=== PATIENT | female | born 1980 | race Two or more races ===

== ENCOUNTER 2016-07-08 11:56 | Emergency (ER) | payer MEDICAID ==
[2016-07-08 12:03] VITALS: O2SAT 97
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
[2016-07-08] MEDS ORDERED: FLUORESCEIN SODIUM 1 MG STRIP OP ONE (12:48)
[2016-07-08] MEDS ORDERED: PROPARACAINE 0.5% 15 ML OPHT DROP OP ONE (12:48)
[2016-07-08 13:24] VITALS: BP 135/74; PULSE 52; RESP 12; TEMP 97.7
== END 2016-07-08 13:22 | disposition home or self-care (01) ==
DX: S05.01XA Injury of conjunctiva and corneal abrasion without foreign body, right eye, initial encounter (principal); J45.909 Unspecified asthma, uncomplicated; Z91.040 Latex allergy status; Z91.010 Allergy to peanuts; W22.8XXA Striking against or struck by other objects, initial encounter

== ENCOUNTER 2016-09-03 17:01 | Emergency (ER) | payer MEDICAID ==
[2016-09-03 17:09] VITALS: BP 136/95; PULSE 60; RESP 16; TEMP 97.9; O2SAT 97
[2016-09-03] MEDS ORDERED: TRIAMCINOLONE ACETONIDE 40 MG/ML VIAL IM ONE (17:32)
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
[2016-09-03] MEDS ORDERED: DIAZEPAM 5 MG TAB PO ONE (17:36)
== END 2016-09-03 19:16 | disposition home or self-care (01) ==
PROC: 3E023BZ Introduction of Anesthetic Agent into Muscle, Percutaneous Approach (ICD-10-PCS; principal; 2016-09-03)
DX: S46.811A Strain of other muscles, fascia and tendons at shoulder and upper arm level, right arm, initial encounter (principal); Z91.040 Latex allergy status; X58.XXXA Exposure to other specified factors, initial encounter
CPT/HCPCS: J3301

== ENCOUNTER 2016-09-11 07:52 | Emergency (ER) | payer MEDICAID ==
[2016-09-11 08:03] VITALS: O2SAT 95
--- NOTE | 2016-09-11 08:22 | EDPHY ---
H & P Time Seen by Provider: 09/11/16 08:05 HPI/ROS: CHIEF COMPLAINT: Cough, exposure to pertussis HISTORY OF PRESENT ILLNESS: 36-year-old female generally healthy complaining of 48 hours of nonproductive cough without dyspnea, without flu-like symptoms. No fever or chills. Her mother with whom she is close has been recently diagnosed with pertussis. No chest pain. No back pain. No abdominal pain. No rash. No international travel. PRIMARY CARE PROVIDER: none REVIEW OF SYSTEMS: A ten point review of systems was performed and is negative with the exception of the items mentioned in the HPI PAST MEDICAL & SURGICAL HISTORY: No pertinent medical or surgical history SOCIAL HISTORY: Nonsmoker. Her mother was recently diagnosed with pertussis and she has been in contact with her mother PHYSICAL EXAM (Prior to examination, patient consented to physical exam, hands were washed and my usual and customary physical exam procedures followed) 1) GENERAL: Well-developed, well-nourished, alert and oriented. Appears to be in no acute distress. Speaking full sentences with no signs of respiratory distress 2) HEAD: Normocephalic, atraumatic 3) HEENT: Pupils equal, round, reactive to light bilaterally. Sclera anicteric. Nasopharynx, oropharynx, clear, no lesions. No tonsillar enlargement or exudate Ears bilaterally with normal tympanic membranes. 4) NECK: Full range of motion, no meningeal signs. 5) LUNGS: Clear auscultation bilaterally, no wheezes, no rhonchi, no retractions. 6) HEART: Regular rate and rhythm, no murmur, no heave, no gallop. 7) ABDOMEN: No guarding, no rebound, no focal tenderness, 8) MUSCULOSKELETAL: No peripheral edema or discoloration. 9) BACK: No CVA tenderness 10) SKIN: No rash, no petechiae. 11) Psychiatric: Patient is oriented X 3, there is no agitation. DIFFERENTIAL DIAGNOSIS: in no particular order including but limited to pertussis, influenza, pneumonia, bronchitis, viral URI Smoking Status: Never smoked Constitutional: Initial Vital Signs Temperature (C) 37.3 C 09/11/16 08:00 Heart Rate 81 09/11/16 08:00 Respiratory Rate 16 09/11/16 08:00 Blood Pressure 126/71 H 09/11/16 08:00 O2 Sat (%) 95 09/11/16 08:00 O2 Delivery Mode Room Air Allergies/Adverse Reactions: erythromycin base [Erythromycin Base] Allergy (Severe, Verified 09/11/16 07:59) N/V + RASH gluten [Gluten] Allergy (Severe, Verified 09/11/16 07:59) DELAYED BODY REACTION hydrocodone bitartrate [From Vicodin] Allergy (Severe, Verified 09/11/16 07:59) Anaphylaxis latex [Latex] Allergy (Severe, Verified 09/11/16 07:59) Rash morphine Allergy (Severe, Verified 09/11/16 07:59) Anaphylaxis oxycodone HCl [From Percocet] Allergy (Severe, Verified 09/11/16 07:59) TONGUE SWELLING peanut [Peanut] Allergy (Severe, Verified 09/11/16 07:59) DELAYED BODY REACTION promethazine HCl [From Phenergan] Allergy (Severe, Verified 09/11/16 07:59) DYSTONIA wheat [Wheat] Allergy (Severe, Verified 09/11/16 07:59) DELAYED BODY REACTION acetaminophen [From Percocet] Allergy (Verified 09/11/16 07:59) MUSHROOM Allergy (Severe, Uncoded 11/30/13 17:55) Anaphylaxis Home Medications: Medication Instructions Recorded EPINEPHrine [Epipen] 0.3 mg IM ONCE #2 syr 02/12/15 Albuterol [Proventil Inhaler HFA 1 - 2 puffs IH Q4PRN PRN #1 mdi 08/08/15 (*)] Ondansetron Odt [Zofran Odt] 4 mg PO Q4PRN PRN #20 tab 01/06/16 Ofloxacin 0.3% [Ocuflox 0.3% (RX)] 1 drops RTEYE 5XD #1 btl 07/08/16 Cyclobenzaprine [Flexeril 10 MG 10 mg PO BID PRN #20 tab 09/03/16 (*)] Lidocaine 5% [Lidoderm 5% Patch 3 ea TD DAILY #0 patch 09/03/16 (*)] AZITHROMYCIN [Z-PACK] 500 mg PO DAILY #1 packet 09/11/16 Albuterol [Proventil Inhaler HFA 1 - 2 puffs IH Q4PRN PRN #1 mdi 09/11/16 (*)] Benzonatate [Tessalon Pearles (RX)] 200 mg PO TID PRN #15 cap 09/11/16 MDM/Departure - [facility] ED Course/Re-evaluation: This patient appears well, is maintaining normal saturations, lungs are clear bilaterally. She does have a recent exposure to a family member was diagnosed with pertussis. Patient has no comorbidities such as COPD, diabetes, immunocompromised or immunosuppressed condition. I recommended testing and initiating empiric treatment for pertussis. I do not think that hospitalization is currently indicated. I do not think that chest x-ray is currently indicated given her normal saturations and clear lungs. Usual and customary pulmonary precautions instructions provided and she feels comfortable being discharged .Care and management in consultation with secondary supervising physician Dr Khalil . - Depart Disposition: Home, Routine, Self-Care Clinical Impression: Cough, Exposure to pertussis Condition: Good Instructions: Pertussis (ED), Acute Cough (ED) Additional Instructions: Return to the emergency department immediately for change in breathing habits, change in voice, change in swallowing habits, change in mental status, or any other symptoms that concern you. You have been tested for whooping cough. The Prescriptions: Albuterol [Proventil Inhaler HFA (*)] 1 - 2 puffs IH Q4PRN PRN #1 mdi PRN Reason: Cough, Moderate AZITHROMYCIN [Z-PACK] 500 mg PO DAILY #1 packet Benzonatate [Tessalon Pearles (RX)] 200 mg PO TID PRN #15 cap PRN Reason: Cough, Moderate Referrals: [facility],. [Clinic] - 2-3 days, call for appt.
[2016-09-11 08:44] VITALS: BP 111/83; PULSE 76; RESP 14; TEMP 97.9
[2016-09-14 15:45] LABS: B.PARAPERTUSSIS PCR Negative; B.PERTUSSIS PCR Negative
== END 2016-09-11 08:44 | disposition home or self-care (01) ==
DX: R05 Cough (principal); Z20.818 Contact with and (suspected) exposure to other bacterial communicable diseases; Z91.010 Allergy to peanuts; Z91.040 Latex allergy status
CPT/HCPCS: 87798-90

== ENCOUNTER 2016-09-12 14:43 | Emergency (ER) | payer MEDICAID ==
--- NOTE | 2016-09-12 16:04 | EDPHY ---
H & P Stated Complaint: CP Time Seen by Provider: 09/12/16 15:59 HPI/ROS: CHIEF COMPLAINT: Chest pain, fevers, body aches HISTORY OF PRESENT ILLNESS: 36-year-old female presents emergency department complaining of right-sided chest pain that started this morning after coughing. Patient states yesterday she started with nasal congestion, cough, subjective fevers and chills. She presented to the emergency department as her mother was recently diagnosed with pertussis and she exposed to her mother. She was discharged yesterday with a prescription for Zithromax, albuterol inhaler and Tessalon Perles. Patient reports she had a coughing fit this morning and felt a pop in her right lung with a burning sensation and has had pain in her right side of her chest since. Patient states she had an episode of post-tussive emesis this morning after taking her Zithromax and she vomited this up. Patient denies abdominal pain, no nausea or diarrhea, no urinary symptoms. REVIEW OF SYSTEMS: A comprehensive 10 point review of systems is otherwise negative aside from elements mentioned in the history of present illness. Source: Patient Exam Limitations: No limitations - Personal History LMP (Females 10-55): Now Tetanus Vaccine Date: July 2010 - Medical/Surgical History Hx Asthma: Yes Hx Chronic Respiratory Disease: No Hx Diabetes: No Hx Cardiac Disease: No Hx Renal Disease: No Hx Cirrhosis: No Hx Alcoholism: No Hx HIV/AIDS: No Hx Splenectomy or Spleen Trauma: No Other PMH: gerd/ depression, PCOS, SI, NARCOLEPSY, IRREG PERIODS, TONSILECTOMY, asthma, PNA, LUPILLO. - Social History Smoking Status: Never smoked - Physical Exam Exam: General: Alert, nontoxic. ENT: Tympanic membranes clear, external auditory canal, external ear and surrounding soft tissue including over the mastoid unremarkable. Nasopharynx is injected, there is rhinorrhea. Oropharynx with erythema. There is no exudate. No tonsillar hypertrophy. No asymmetry. The uvula is midline. No elevation of tongue. There is no hoarseness. No drooling, patient has good control of their oral secretions. No trismus. No stridor. Cardiac: Tachycardic rate and rhythm. Chest: Right-sided chest pain reproducible with palpation Respiratory: Lungs clear to auscultation bilaterally. Neurological: no meningismus. Skin: No rashes. Constitutional: Initial Vital Signs Temperature (C) 37.5 C 09/12/16 14:53 Heart Rate 108 H 09/12/16 14:53 Respiratory Rate 18 09/12/16 14:53 Blood Pressure 130/95 H 09/12/16 14:53 O2 Sat (%) 97 09/12/16 14:53 O2 Delivery Mode Room Air Allergies/Adverse Reactions: erythromycin base [Erythromycin Base] Allergy (Severe, Verified 09/11/16 07:59) N/V + RASH gluten [Gluten] Allergy (Severe, Verified 09/11/16 07:59) DELAYED BODY REACTION hydrocodone bitartrate [From Vicodin] Allergy (Severe, Verified 09/11/16 07:59) Anaphylaxis latex [Latex] Allergy (Severe, Verified 09/11/16 07:59) Rash morphine Allergy (Severe, Verified 09/11/16 07:59) Anaphylaxis oxycodone HCl [From Percocet] Allergy (Severe, Verified 09/11/16 07:59) TONGUE SWELLING peanut [Peanut] Allergy (Severe, Verified 09/11/16 07:59) DELAYED BODY REACTION promethazine HCl [From Phenergan] Allergy (Severe, Verified 09/11/16 07:59) DYSTONIA wheat [Wheat] Allergy (Severe, Verified 09/11/16 07:59) DELAYED BODY REACTION acetaminophen [From Percocet] Allergy (Verified 09/11/16 07:59) MUSHROOM Allergy (Severe, Uncoded 11/30/13 17:55) Anaphylaxis Home Medications: Medication Instructions Recorded EPINEPHrine [Epipen] 0.3 mg IM ONCE #2 syr 02/12/15 Albuterol [Proventil Inhaler HFA 1 - 2 puffs IH Q4PRN PRN #1 mdi 08/08/15 (*)] Ondansetron Odt [Zofran Odt] 4 mg PO Q4PRN PRN #20 tab 01/06/16 Ofloxacin 0.3% [Ocuflox 0.3% (RX)] 1 drops RTEYE 5XD #1 btl 07/08/16 Cyclobenzaprine [Flexeril 10 MG 10 mg PO BID PRN #20 tab 09/03/16 (*)] Lidocaine 5% [Lidoderm 5% Patch 3 ea TD DAILY #0 patch 09/03/16 (*)] AZITHROMYCIN [Z-PACK] 500 mg PO DAILY #1 packet 09/11/16 Albuterol [Proventil Inhaler HFA 1 - 2 puffs IH Q4PRN PRN #1 mdi 09/11/16 (*)] Benzonatate [Tessalon Pearles (RX)] 200 mg PO TID PRN #15 cap 09/11/16 Medical Decision Making - Diagnostics Imaging Results: Imaging Impressions Chest X-Ray 09/12/16 16:13 Impression: Clear lungs. Minimal airways disease similar to 2016. Imaging: I viewed and interpreted images myself ED Course/Re-evaluation: IV established, CBC, chemistry panel, troponin, D-dimer, EKG and chest x-ray obtained. EKG showed no evidence of heart strain, no evidence of ischemia. Chest x-ray shows no evidence of pneumonia, CBC, chemistry panel are normal, troponin is negative, D-dimer is negative. Patient is given 15 mg of IV Toradol and 650 mg of oral Tylenol. She reports this has helped her symptoms significantly. She will be discharged home with a diagnosis of viral syndrome and chest wall pain. Patient is given strict return precautions for worsening symptoms and is encouraged to follow up at [facility] to establish care. Differential Diagnosis: Diagnosis considered but not limited to coronary artery disease, pericarditis, pulmonary embolism, pneumonia, bronchitis, costochondritis, pleuritis - Data Points Laboratory Results: Laboratory Results 09/12/16 Unknown 09/12/16 16:49 09/12/16 09/12/16 09/12/16 Unknown 16:49 16:49 WBC 6.37 10^3/uL 10^3/uL (3.80-9.50) RBC 5.47 10^6/uL H 10^6/uL (4.18-5.33) Hgb 16.2 g/dL g/dL (12.6-16.3) Hct 48.7 % H % (38.0-47.0) MCV 89.0 fL fL (81.5-99.8) MCH 29.6 pg pg (27.9-34.1) MCHC 33.3 g/dL g/dL (32.4-36.7) RDW 13.6 % % (11.5-15.2) Plt Count 220 10^3/uL 10^3/uL (150-400) MPV 9.8 fL fL (8.7-11.7) Neut % (Auto) 76.1 % H % (39.3-74.2) Lymph % (Auto) 11.5 % L % (15.0-45.0) [place] % (Auto) 9.9 % % (4.5-13.0) Eos % (Auto) 0.6 % % (0.6-7.6) Baso % (Auto) 1.1 % % (0.3-1.7) Nucleat RBC Rel Count 0.0 % % (0.0-0.2) Absolute Neuts (auto) 4.85 10^3/uL 10^3/uL (1.70-6.50) Absolute Lymphs (auto) 0.73 10^3/uL L 10^3/uL (1.00-3.00) Absolute Monos (auto) 0.63 10^3/uL 10^3/uL (0.30-0.80) Absolute Eos (auto) 0.04 10^3/uL 10^3/uL (0.03-0.40) Absolute Basos (auto) 0.07 10^3/uL 10^3/uL (0.02-0.10) Absolute Nucleated RBC 0.00 10^3/uL 10^3/uL (0-0.01) Immature Gran % 0.8 % % (0.0-1.1) Immature Gran # 0.05 10^3/uL 10^3/uL (0.00-0.10) D-Dimer 0.44 ug/mLFEU ug/mLFEU (0.00-0.50) Sodium 135 mEq/L mEq/L (134-144) Potassium 4.2 mEq/L mEq/L (3.5-5.2) Chloride 99 mEq/L mEq/L (97-110) Carbon Dioxide 26 mEq/l mEq/l (22-31) Anion Gap 10 mEq/L mEq/L (8-16) BUN 11 mg/dL mg/dL (7-23) Creatinine 0.8 mg/dL mg/dL (0.6-1.0) Estimated GFR > 60 Glucose 83 mg/dL mg/dL (70-100) Calcium 9.5 mg/dL mg/dL (8.5-10.4) Troponin I < 0.012 ng/mL ng/mL (0-0.034) Medications Given: Discontinued Medications Acetaminophen (Tylenol) 650 mg PO EDNOW ONE Stop: 09/12/16 16:19 Last Admin: 09/12/16 16:56 Dose: 650 mg Azithromycin (Zithromax) 250 mg PO EDNOW ONE PRN Reason: Protocol Stop: 09/12/16 16:19 Last Admin: 09/12/16 16:56 Dose: 250 mg Sodium Chloride (Ns) 1,000 mls @ 0 mls/hr IV ONCE ONE PRN Reason: Wide Open Stop: 09/12/16 16:26 Last Admin: 09/12/16 16:57 Dose: 1,000 mls Ketorolac Tromethamine (Toradol) 15 mg IVP EDNOW ONE Stop: 09/12/16 16:19 Last Admin: 09/12/16 16:57 Dose: 15 mg Departure - Departure Disposition: Home, Routine, Self-Care Clinical Impression: Chest wall pain, Viral syndrome Condition: Good Instructions: Viral Syndrome (ED), Chest Wall Pain (ED) Additional Instructions: Take 600 mg of ibuprofen every 8 hours with food for 5 days. Continue your antibiotics. Use your albuterol inhaler as needed, take your Tessalon Perles for cough as needed. Ice to your chest wall. Follow-up with your primary care doctor next week for symptoms that are not improving, return to the emergency department for worsening symptoms, new symptoms or concerns. Referrals: [facility] [Outside] - As per Instructions
[2016-09-12] MEDS ORDERED: KETOROLAC 15 MG/1 ML SDV IVP ONE (16:18)
[2016-09-12] MEDS ORDERED: AZITHROMYCIN 250 MG TAB PO ONE (16:18)
[2016-09-12] MEDS ORDERED: ACETAMINOPHEN 325 MG TAB PO ONE (16:18)
[2016-09-12] MEDS ORDERED: NS 1,000 ML IV ONE (16:25)
[2016-09-12 16:53] LABS: % IMMATURE GRANULYOCYTES 0.8 % (0.0-1.1); ABSOLUTE IMMATURE GRANULOCYTES 0.05 10^3/uL (0.00-0.10); ADD DIFF? NO; ADD MORPH? NO; ADD SCAN? NO; ATYPICAL LYMPHOCYTE FLAG 0 (0-99); FRAGMENT RBC FLAG 0 (0-99); HEMATOCRIT 48.7 % (38.0-47.0); HEMOGLOBIN 16.2 g/dL (12.6-16.3); LEFT SHIFT FLG 0 (0-99); LIPEMIA HEMOLYSIS FLAG 80 (0-99); MEAN CELL HEMOGLOBIN 29.6 pg (27.9-34.1); MEAN CELL HEMOGLOBIN CONCENTR. 33.3 g/dL (32.4-36.7); MEAN PLATELET VOLUME 9.8 fL (8.7-11.7); PLATELET CLUMPS FLAG 0 (0-99); PLATELET COUNT 220 10^3/uL (150-400); RED BLOOD CELL COUNT 5.47 10^6/uL (4.18-5.33); RED CELL DISTRIBUTION WIDTH 13.6 % (11.5-15.2)
--- NOTE | 2016-09-12 16:59 | CPEKG ---
Heart Rate: 84 RR Interval: 714 P-R Interval: 164 QRSD Interval: 82 QT Interval: 352 QTC Interval: 417 P [place]: 51 QRS [place]: -10 T Wave [place]: 38 EKG Severity - ABNORMAL ECG - EKG Impression: SINUS RHYTHM EKG Impression: LEFT ATRIAL ABNORMALITY Electronically Signed By: Calvin King 12-Sep-2016 17:03:51
[2016-09-12 17:14] LABS: ANION GAP 10 mEq/L (8-16); CALCIUM 9.5 mg/dL (8.5-10.4); CARBON DIOXIDE 26 mEq/l (22-31); CHLORIDE 99 mEq/L (97-110); CREATININE 0.8 mg/dL (0.6-1.0); GLOMERULAR FILTRATION RATE > 60; GLUCOSE 83 mg/dL (70-100); POTASSIUM 4.2 mEq/L (3.5-5.2); SODIUM 135 mEq/L (134-144)
[2016-09-12 17:25] LABS: TROPONIN I < 0.012 ng/mL (0-0.034)
[2016-09-12 17:40] VITALS: O2SAT 95
[2016-09-12 18:19] VITALS: BP 122/78; PULSE 88; RESP 16; TEMP 97.7
== END 2016-09-12 18:19 | disposition home or self-care (01) ==
LOC: EDUNIT#
DX: R07.89 Other chest pain (principal); B34.9 Viral infection, unspecified; J45.909 Unspecified asthma, uncomplicated; Z91.010 Allergy to peanuts; Z91.040 Latex allergy status
CPT/HCPCS: 96374; J1885

== ENCOUNTER 2016-09-16 09:38 | Emergency (ER) | payer MEDICAID ==
[2016-09-16] MEDS ORDERED: IBUPROFEN 200 MG TAB PO ONE (10:36)
--- NOTE | 2016-09-16 10:41 | EDPHY ---
H & P Stated Complaint: Still coughing so hard she vomits her meds;c/o back pain; hyperventilating Time Seen by Provider: 09/16/16 10:05 HPI/ROS: CHIEF COMPLAINT: "My kidneys are hurting me" HISTORY OF PRESENT ILLNESS: 36-year-old female with no history chronic renal disease, no history of nephrolithiasis, complaining of acute paraspinous lumbar back pain " my kidneys are hurting me", for the past several days exacerbated with movement and with coughing. She has been experiencing coughing for some time now has been seen emergency department recently for similar complaints, has a prescription for azithromycin albuterol and Tessalon Perles. States that she vomited every time she took the azithromycin therefore did not complete therapy with this. She does not have primary care provider and her mother referred her to Dr. Noé Pagan whom she saw this morning and had influenza nasal swab performed and was complaining of acute low back pain at that time .She is she is currently on her menstrual period. She denies: Incontinence, retention, saddle anesthesia, radicular symptoms in her lower extremities, fever, chills, dysuria, Increased urinary frequency, abdominal pain PRIMARY CARE PROVIDER:no primary care provider REVIEW OF SYSTEMS: A ten point review of systems was performed and is negative with the exception of the items mentioned in the HPI PAST MEDICAL & SURGICAL HISTORY: Depression. Polycystic ovarian syndrome. Narcolepsy. Tonsillectomy. Asthma. SOCIAL HISTORY: Nonsmoker PHYSICAL EXAM (Prior to examination, patient consented to physical exam, hands were washed and my usual and customary physical exam procedures followed) 1) GENERAL: Well-developed, well-nourished, alert and oriented. Appears anxious 2) HEAD: Normocephalic, atraumatic 3) HEENT: Sclera anicteric. 4) NECK: Full range of motion, no meningeal signs. 5) LUNGS: Clear auscultation bilaterally, no wheezes, no rhonchi, no retractions. 6) HEART: Regular rate and rhythm, no murmur, no heave, no gallop. 7) ABDOMEN: No guarding, no rebound, no focal tenderness, negative McBurney's, negative Dang's, negative Rovsing's, negative peritoneal sign, 8) MUSCULOSKELETAL: Moving all extremities, no focal areas of tenderness, no obvious trauma. No peripheral edema or discoloration. 9) BACK: No CVA tenderness, no midline vertebral tenderness, no fluctuance, no step-off, no obvious trauma, no visual or palpable abnormality. patella Achilles reflexes intact and equal with bilateral strength 5/5 10) SKIN: No rash, no petechiae. 11) Psychiatric: Patient is oriented X 3, there is no agitation. DIFFERENTIAL DIAGNOSIS: In no particular order, including but not limited to, fracture, sprain/strain, cauda equina, spinal infectious etiology, nephrolithiasis, pyelonephritis. - Personal History LMP (Females 10-55): Now Tetanus Vaccine Date: July 2010 - Medical/Surgical History Hx Asthma: Yes Hx Chronic Respiratory Disease: No Hx Diabetes: No Hx Cardiac Disease: No Hx Renal Disease: No Hx Cirrhosis: No Hx Alcoholism: No Hx HIV/AIDS: No Hx Splenectomy or Spleen Trauma: No Other PMH: gerd/ depression, PCOS, SI, NARCOLEPSY, IRREG PERIODS, TONSILECTOMY, asthma, PNA, LUPILLO. - Social History Smoking Status: Never smoked Constitutional: Initial Vital Signs Temperature (C) 36.5 C 09/16/16 09:40 Heart Rate 72 09/16/16 09:40 Respiratory Rate 22 H 09/16/16 09:40 Blood Pressure 125/98 H 09/16/16 09:40 O2 Sat (%) 97 09/16/16 09:40 O2 Delivery Mode Room Air Allergies/Adverse Reactions: erythromycin base [Erythromycin Base] Allergy (Severe, Verified 09/16/16 09:39) N/V + RASH gluten [Gluten] Allergy (Severe, Verified 09/16/16 09:39) DELAYED BODY REACTION hydrocodone bitartrate [From Vicodin] Allergy (Severe, Verified 09/16/16 09:39) Anaphylaxis latex [Latex] Allergy (Severe, Verified 09/16/16 09:39) Rash morphine Allergy (Severe, Verified 09/16/16 09:39) Anaphylaxis oxycodone HCl [From Percocet] Allergy (Severe, Verified 09/16/16 09:39) TONGUE SWELLING peanut [Peanut] Allergy (Severe, Verified 09/16/16 09:39) DELAYED BODY REACTION promethazine HCl [From Phenergan] Allergy (Severe, Verified 09/16/16 09:39) DYSTONIA wheat [Wheat] Allergy (Severe, Verified 09/16/16 09:39) DELAYED BODY REACTION acetaminophen [From Percocet] Allergy (Verified 09/16/16 09:39) MUSHROOM Allergy (Severe, Uncoded 11/30/13 17:55) Anaphylaxis Home Medications: Medication Instructions Recorded EPINEPHrine [Epipen] 0.3 mg IM ONCE #2 syr 02/12/15 Albuterol [Proventil Inhaler HFA 1 - 2 puffs IH Q4PRN PRN #1 mdi 08/08/15 (*)] Ondansetron Odt [Zofran Odt] 4 mg PO Q4PRN PRN #20 tab 01/06/16 Ofloxacin 0.3% [Ocuflox 0.3% (RX)] 1 drops RTEYE 5XD #1 btl 07/08/16 Cyclobenzaprine [Flexeril 10 MG 10 mg PO BID PRN #20 tab 09/03/16 (*)] Lidocaine 5% [Lidoderm 5% Patch 3 ea TD DAILY #0 patch 09/03/16 (*)] AZITHROMYCIN [Z-PACK] 500 mg PO DAILY #1 packet 09/11/16 Albuterol [Proventil Inhaler HFA 1 - 2 puffs IH Q4PRN PRN #1 mdi 09/11/16 (*)] Benzonatate [Tessalon Pearles (RX)] 200 mg PO TID PRN #15 cap 09/11/16 Cephalexin [Keflex] 500 mg PO TID 7 Days 09/16/16 Oseltamivir Phosphate [Tamiflu] 75 mg PO BIDMEAL 5 Days 09/16/16 Medical Decision Making - Diagnostics Imaging Results: Imaging Impressions Abdomen/Pelvis CT 09/16/16 10:36 Impression: 1. No acute findings in the abdomen. 2. Left nephrolithiasis without obstructive uropathy. 3. Fatty liver. 4. Additional findings as above. Findings discussed with Ava Pa PA-C, 09/16/2016 at 1133 hours. Attention: This CT examination is specifically designed to evaluate patients who are clinically suspected of having acute obstructive uropathy. This examination does not use radiographic contrast, and as such, provides only a limited evaluation of the abdomen, pelvis and retroperitoneum. If there is further clinical suspicion for pathological conditions other than obstructive uropathy, a complete CT evaluation of the abdomen and pelvis utilizing intravenous and oral contrast should be considered. Images reviewed by myself ED Course/Re-evaluation: 1:11 p.m.: I received a phone call from Dr. Noé Pagan informed me that the patient had been Clinic this morning, although had not been seen by Dr. Pagan, she had an outpatient influenza test which was positive at this time for influenza B he recommended starting her on Tamiflu. Was also informed by Dr. Noé Pagan that the patient's pertussis test obtained few days ago was negative. This information has been conveyed to the patient. 1:15 p.m. This patient was re-evaluated with serial examinations. She is feeling improvement in symptoms. I discussed her influenza results. Discussed her pyuria and nephrolithiasis. Doubt cauda equina. Doubt epidural abscess or spinal infectious etiology. I am culturing her urine and starting her on Keflex and recommend she follow up with Dr. Lv Reyes. The home health care case manager has also consulted and arranged for appointment the [facility]. - Data Points Laboratory Results: 09/16/16 09/16/16 10:05 10:05 Urine Color RED Urine Appearance HAZY Urine pH 7.0 (5.0-7.5) Ur Specific [place] 1.008 (1.002-1.030) Urine Protein NEGATIVE (NEGATIVE) Urine Ketones NEGATIVE (NEGATIVE) Urine Blood 3+ H (NEGATIVE) Urine Nitrate NEGATIVE (NEGATIVE) Urine Bilirubin NEGATIVE (NEGATIVE) Urine Urobilinogen NEGATIVE EU EU (0.2-1.0) Ur Leukocyte Esterase NEGATIVE (NEGATIVE) Urine RBC 50-182 /hpf H /hpf (0-3) Urine WBC 15-25 /hpf H /hpf (0-3) Ur Epithelial Cells TRACE /lpf /lpf (NONE-1+) Urine Glucose NEGATIVE (NEGATIVE) Urine Test NEGATIVE Medications Given: Discontinued Medications Ibuprofen (Motrin) 800 mg PO EDNOW ONE Stop: 09/16/16 10:37 Last Admin: 09/16/16 10:50 Dose: 800 mg Departure - Departure Disposition: Home, Routine, Self-Care Clinical Impression: Left nephrolithiasis, Pyuria, Influenza B Condition: Good Instructions: Kidney Stones (ED), Influenza (ED) Additional Instructions: You have a follow up appointment at [facility] in [place] [phone], on September 21 9:00 AM Referrals: Lv Reyes MD [Medical Doctor] - 2-3 days, call for appt. (Dr. Lv Reyes is a urologist) Stand Alone Forms: Work Excuse Prescriptions: Cephalexin [Keflex] 500 mg PO TID 7 Days Oseltamivir Phosphate [Tamiflu] 75 mg PO BIDMEAL 5 Days
[2016-09-16 10:46] LABS: COLOR RED; LEUKOCYTE ESTERASE,URINE NEGATIVE (NEGATIVE); NITRITE,URINE NEGATIVE (NEGATIVE)
[2016-09-16 10:51] LABS: RBC,URINE 50-182 /hpf (0-3); WBC,URINE 15-25 /hpf (0-3)
[2016-09-16 13:36] VITALS: BP 128/65; PULSE 96; RESP 18; TEMP 98.6; O2SAT 95
== END 2016-09-16 13:34 | disposition home or self-care (01) ==
DX: N20.0 Calculus of kidney (principal); J10.1 Influenza due to other identified influenza virus with other respiratory manifestations; N39.0 Urinary tract infection, site not specified; J45.909 Unspecified asthma, uncomplicated; Z91.040 Latex allergy status

== ENCOUNTER 2017-04-09 08:16 | Emergency (ER) | payer MEDICAID ==
[2017-04-09] MEDS ORDERED: KETOROLAC 30 MG/1 ML SDV IVP ONE (08:41)
[2017-04-09] MEDS ORDERED: LORazepam 2 MG/ML INJ IVP ONE (08:41)
[2017-04-09] MEDS ORDERED: ONDANSETRON 4 MG/2 ML VIAL IVP ONE (08:41)
[2017-04-09] MEDS ORDERED: NS 1,000 ML IV ONE (08:41)
--- NOTE | 2017-04-09 08:41 | EDPHY ---
H & P Stated Complaint: Nausea and vomiting starting around 0500 this am - Personal History Tetanus Vaccine Date: July 2010 - Medical/Surgical History Hx Asthma: Yes Hx Chronic Respiratory Disease: No Hx Diabetes: No Hx Cardiac Disease: No Hx Renal Disease: No Hx Cirrhosis: No Hx Alcoholism: No Hx HIV/AIDS: No Hx Splenectomy or Spleen Trauma: No Other PMH: gerd/ depression, PCOS, SI, NARCOLEPSY, IRREG PERIODS, TONSILECTOMY, asthma, PNA, LUPILLO. - Social History Smoking Status: Never smoked Time Seen by Provider: 04/09/17 08:31 HPI/ROS: CHIEF COMPLAINT: Nausea vomiting, abdominal pain since 5:00 a.m. HISTORY OF PRESENT ILLNESS: 36-year-old female with no history of abdominal surgeries awoke at 5:00 a.m. complaining of nausea, vomiting, diffuse abdominal pain. Bowel movements normal. Person in her household has been sick recently with gastroenteritis like symptoms. No fever or chills. No abdominal trauma. No urinary abnormality. No chest pain. No dyspnea. No back or flank pain. PRIMARY CARE PROVIDER: [facility] REVIEW OF SYSTEMS: A ten point review of systems was performed and is negative with the exception of the items mentioned in the HPI PAST MEDICAL & SURGICAL HISTORY: Depression. Positive ovarian syndrome. Tonsillectomy. SOCIAL HISTORY: Nonsmoker. No alcohol use. No drug use. No marijuana use. PHYSICAL EXAM (Prior to examination, patient consented to physical exam, hands were washed and my usual and customary physical exam procedures followed) 1) GENERAL: obese, appears uncomfortable. 2) HEAD: Normocephalic, atraumatic 3) HEENT: Pupils equal, round, reactive to light bilaterally. Sclera anicteric. [Nasopharynx, oropharynx, clear, no lesions. Dry mucous membranes 4) NECK: Full range of motion, no meningeal signs. 5) LUNGS: Clear auscultation bilaterally, no wheezes, no rhonchi, no retractions. 6) HEART: Regular rate and rhythm, no murmur, no heave, no gallop. 7) ABDOMEN: Guarding abdomen, tender to palpation bilateral upper quadrants. No lower abdominal tenderness., 8) MUSCULOSKELETAL: Moving all extremities, no focal areas of tenderness, no obvious trauma. No peripheral edema or discoloration. 9) BACK: No CVA tenderness, no midline vertebral tenderness, no fluctuance, no step-off, no obvious trauma, no visual or palpable abnormality. 10) SKIN: No rash, no petechiae. 11) Psychiatric: Patient is oriented X 3, there is no agitation. DIFFERENTIAL DIAGNOSIS: In no particular order, including but not limited to biliary colic, cholecystitis, peptic ulcer disease, pancreatitis, and gastroenteritis. This is a partial list of diagnoses considered. These considerations are based on history, physical exam, past history and reassessment. (Ava Pa) Constitutional: Initial Vital Signs Temperature (C) 36.6 C 04/09/17 08:17 Heart Rate 94 04/09/17 08:17 Respiratory Rate 18 04/09/17 08:17 Blood Pressure 141/98 H 04/09/17 08:17 O2 Sat (%) 93 04/09/17 08:17 O2 Delivery Mode Room Air Allergies/Adverse Reactions: erythromycin base [Erythromycin Base] Allergy (Severe, Verified 12/21/16 15:34) N/V + RASH gluten [Gluten] Allergy (Severe, Verified 12/21/16 15:34) DELAYED BODY REACTION hydrocodone bitartrate [From Vicodin] Allergy (Severe, Verified 12/21/16 15:34) Anaphylaxis latex [Latex] Allergy (Severe, Verified 12/21/16 15:34) Rash morphine Allergy (Severe, Verified 12/21/16 15:34) Anaphylaxis oxycodone HCl [From Percocet] Allergy (Severe, Verified 12/21/16 15:34) TONGUE SWELLING peanut [Peanut] Allergy (Severe, Verified 12/21/16 15:34) DELAYED BODY REACTION promethazine HCl [From Phenergan] Allergy (Severe, Verified 12/21/16 15:34) DYSTONIA wheat [Wheat] Allergy (Severe, Verified 12/21/16 15:34) DELAYED BODY REACTION acetaminophen [From Percocet] Allergy (Verified 12/21/16 15:34) MUSHROOM Allergy (Severe, Uncoded 11/30/13 17:55) Anaphylaxis Home Medications: Medication Instructions Recorded EPINEPHrine [Epipen] 0.3 mg IM ONCE #2 syr 02/12/15 Albuterol [Proventil Inhaler HFA 1 - 2 puffs IH Q4PRN PRN #1 mdi 08/08/15 (*)] Cyclobenzaprine [Flexeril 10 MG 10 mg PO BID PRN #20 tab 09/03/16 (*)] Albuterol [Proventil Inhaler HFA 1 - 2 puffs IH Q4PRN PRN #1 mdi 09/11/16 (*)] Buspar (*) 12/21/16 Zoloft 50mg (*) 12/21/16 Ondansetron Odt [Zofran Odt] 4 mg PO Q4PRN PRN #7 tab 04/09/17 Medical Decision Making ED Course/Re-evaluation: 8:30 a.m.: Old medical records reviewed, patient is complaining of nausea vomiting diffuse abdominal pain all quadrants with light palpation. Will obtain diagnostic studies and re-evaluated 9:40 a.m.: Gallbladder ultrasound negative per Radiology interpretation. 9:42 a.m.: Patient re-evaluated, sleeping, easily woken, appears more comfortable. Discussed her diagnostic studies results with her. Will attempt oral fluid challenge. Re-examined her abdomen at this time. She remains with mild discomfort in epigastrium. No lower abdominal discomfort. Negative McBurney's point pain. At this time I informed her that I think that acute appendicitis, acute cholecystitis, acute pancreatitis, ectopic , are less than likely. 1107 am: Patient complained of continued nausea. No abdominal pain. Abdomen is soft no guarding no rebound. Will administer further antiemetic. 11:55 a.m.: Re-evaluation, patient tolerating oral intake, re-evaluated her abdomen which is soft no guarding no rebound. No McBurney's point pain. Doubt acute appendicitis. She has been informed that early intra-abdominal pathology is not ruled out although I doubt acute surgical abdominal pathology at this point. Recommend 12 hr recheck in the emergency department, return sooner should she develop new or worsening symptoms. (Ava Pa) I did not see this patient while she was in the emergency department. However her care was discussed with the PA while the patient was in the department. I agree with treatment plan and management. IM the secondary supervising physician (Noé Chavis) - Data Points Laboratory Results: Laboratory Results 04/09/17 08:40 04/09/17 08:40 Medications Given: Discontinued Medications Sodium Chloride (Ns) 1,000 mls @ 0 mls/hr IV EDNOW ONE; Wide Open PRN Reason: Protocol Stop: 04/09/17 08:42 Last Admin: 04/09/17 08:49 Dose: 1,000 mls Ketorolac Tromethamine (Toradol) 30 mg IVP EDNOW ONE Stop: 04/09/17 08:42 Last Admin: 04/09/17 08:49 Dose: 30 mg Lorazepam (Ativan Injection) 1 mg IVP EDNOW ONE Stop: 04/09/17 08:42 Last Admin: 04/09/17 08:48 Dose: 1 mg Metoclopramide HCl (Reglan Injection) 10 mg IVP EDNOW ONE Stop: 04/09/17 11:08 Last Admin: 04/09/17 11:15 Dose: 10 mg Ondansetron HCl (Zofran) 4 mg IVP EDNOW ONE Stop: 04/09/17 08:42 Last Admin: 04/09/17 08:50 Dose: 4 mg Departure - Departure Disposition: Home, Routine, Self-Care Clinical Impression: Abdominal pain, Nausea & vomiting, Volume depletion Condition: Good Instructions: Acute Nausea and Vomiting (ED), Acute Abdominal Pain (ED) Additional Instructions: Recommend he return to the ER in 12 hr for recheck. If you develop new or worsening symptoms please return to the ER sooner. Referrals: Return, to the ER in 12 hr for recheck [Other] - 04/09/17 11:55 pm Prescriptions: Ondansetron Odt [Zofran Odt] 4 mg PO Q4PRN PRN #7 tab PRN Reason: Nausea
[2017-04-09 08:54] LABS: PLATELET COUNT 274 10^3/uL (150-400)
[2017-04-09 10:09] VITALS: BP 120/77; TEMP 98.4
[2017-04-09] MEDS ORDERED: METOCLOPRAMIDE 10 MG/2 ML VIAL IVP ONE (11:07)
[2017-04-09 12:13] VITALS: PULSE 99; RESP 16; O2SAT 94
== END 2017-04-09 12:11 | disposition home or self-care (01) ==
DX: R11.2 Nausea with vomiting, unspecified (principal); R10.11 Right upper quadrant pain; R10.12 Left upper quadrant pain; E86.9 Volume depletion, unspecified; J45.909 Unspecified asthma, uncomplicated; Z91.010 Allergy to peanuts; Z91.040 Latex allergy status
CPT/HCPCS: 96374; J1885; J2060; J2405; J2765

== ENCOUNTER 2017-08-20 08:14 | Emergency (ER) | payer MEDICAID ==
[2017-08-20] MEDS ORDERED: methylPREDNISolone SOD SUCC 125 MG/2 ML VIAL IVP ONE (08:34)
--- NOTE | 2017-08-20 08:34 | EDPHY ---
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 Patient states she has had increasing seasonal allergy symptoms and took Benadryl last night before going to bed. This morning she was in the shower and was coughing up quite a bit of mucus. She states that she had the sensation that she could not breathe and a sensation that her tongue and throat were swelling. Her father administered her EpiPen. She is not feeling shaky but feels that she is breathing better. Denies any other exposures. No fevers or chills. No recent illness. No nausea or vomiting. No chest pain. No shortness of breath. ROS: 10 point Review of Systems is negative except as noted in the HPI. PMH: Much from allergy Social History: No smoking, no alcohol, no recreational drug use Family History: non-contributory Physical Exam: Gen: Awake, Alert, anxious appearing HEENT: Nose: no rhinorrhea Eyes: PERRLA, EOMI Mouth: Moist mucosa no tongue or oral pharyngeal edema or erythema Neck: Supple, no JVD Chest: nontender, lungs clear to auscultation Heart: S1, S2 normal, no murmur Abd: Soft, non-tender, no guarding Back: no CVA tenderness, no midline tenderness Ext: no edema, non-tender Skin: no rash Neuro: CN II-XII intact, Sensation grossly intact, Strength 5/5 in bilateral upper and lower extremities - Personal History LMP (Females 10-55): Irregular Current Tetanus/Diphtheria Vaccine: Yes Current Tetanus Diphtheria and Acellular Pertussis (TDAP): Yes Tetanus Vaccine Date: July 2010 - Medical/Surgical History Hx Asthma: Yes Hx Chronic Respiratory Disease: No Hx Diabetes: No Hx Cardiac Disease: No Hx Renal Disease: No Hx Cirrhosis: No Hx Alcoholism: No Hx HIV/AIDS: No Hx Splenectomy or Spleen Trauma: No Other PMH: gerd/ depression, PCOS, SI, NARCOLEPSY, IRREG PERIODS, TONSILECTOMY, asthma, PNA, LUPILLO. - Social History Smoking Status: Never smoked Constitutional: Initial Vital Signs Temperature (C) 37.1 C 08/20/17 08:20 Heart Rate 107 H 08/20/17 08:20 Respiratory Rate 20 08/20/17 08:20 Blood Pressure 127/91 H 08/20/17 08:20 O2 Sat (%) 94 08/20/17 08:20 O2 Delivery Mode Room Air Allergies/Adverse Reactions: erythromycin base [Erythromycin Base] Allergy (Severe, Verified 08/20/17 08:18) N/V + RASH gluten [Gluten] Allergy (Severe, Verified 08/20/17 08:18) DELAYED BODY REACTION hydrocodone bitartrate [From Vicodin] Allergy (Severe, Verified 08/20/17 08:18) Anaphylaxis latex [Latex] Allergy (Severe, Verified 08/20/17 08:18) Rash morphine Allergy (Severe, Verified 08/20/17 08:18) Anaphylaxis oxycodone HCl [From Percocet] Allergy (Severe, Verified 08/20/17 08:18) TONGUE SWELLING peanut [Peanut] Allergy (Severe, Verified 08/20/17 08:18) DELAYED BODY REACTION promethazine HCl [From Phenergan] Allergy (Severe, Verified 08/20/17 08:18) DYSTONIA wheat [Wheat] Allergy (Severe, Verified 08/20/17 08:18) DELAYED BODY REACTION acetaminophen [From Percocet] Allergy (Verified 08/20/17 08:18) MUSHROOM Allergy (Severe, Uncoded 08/20/17 08:18) Anaphylaxis Home Medications: Medication Instructions Recorded EPINEPHrine [Epipen] 0.3 mg IM ONCE #2 syr 02/12/15 Albuterol [Proventil Inhaler HFA 1 - 2 puffs IH Q4PRN PRN #1 mdi 09/11/16 (*)] Zoloft 50mg (*) 12/21/16 Benadryl 08/20/17 EPINEPHrine [Epipen 0.3 MG] 0.3 mg IM ONCE #2 syr 08/20/17 Medical Decision Making - Data Points Medications Given: Discontinued Medications Diphenhydramine HCl (Benadryl Injection) 50 mg IVP EDNOW ONE Stop: 08/20/17 08:35 Last Admin: 08/20/17 08:47 Dose: 50 mg Methylprednisolone Sodium Succinate (Solu-Medrol) 125 mg IVP EDNOW ONE Stop: 08/20/17 08:35 Last Admin: 08/20/17 08:47 Dose: 125 mg Departure - Departure Disposition: Home, Routine, Self-Care Clinical Impression: Allergic reaction Condition: Good Instructions: General Allergic Reaction (ED) Additional Instructions: Continue taking Benadryl, 50 mg every 4 hr for the next 24 hr. You may administer your EpiPen for difficulty breathing or tongue or mouth this or throat swelling. Follow up with primary care physician in 2-3 days for further evaluation. Return to the emergency department for throat swelling, difficulty breathing, lightheadedness, fainting, or any other concerns. Referrals: NONE *PRIMARY CARE P,. [Primary Care Provider] - As per Instructions Prescriptions: EPINEPHrine [Epipen 0.3 MG] 0.3 mg IM ONCE #2 syr
[2017-08-20 10:06] VITALS: BP 101/58
== END 2017-08-20 10:07 | disposition home or self-care (01) ==
DX: T78.40XA Allergy, unspecified, initial encounter (principal); J45.909 Unspecified asthma, uncomplicated; Z91.010 Allergy to peanuts; Z91.040 Latex allergy status
CPT/HCPCS: 96374; J1200; J2930

== ENCOUNTER 2017-12-03 | Emergency (ER) | payer MEDICAID | END 2017-12-03 15:26 | disposition home or self-care (01) | DX: J06.9 Acute upper respiratory infection, unspecified (principal) ==

== ENCOUNTER 2018-01-28 15:25 | Emergency (ER) | payer MEDICAID ==
[2018-01-28] MEDS ORDERED: RANITIDINE 50 MG/2 ML VIAL IVP ONE (15:45)
[2018-01-28] MEDS ORDERED: methylPREDNISolone SOD SUCC 125 MG/2 ML VIAL IVP ONE (15:45)
--- NOTE | 2018-01-28 15:48 | EDPHY ---
H & P Stated Complaint: Allergic rxn, epi pen administered, no symptoms at this time Time Seen by Provider: 01/28/18 15:29 HPI/ROS: CHIEF COMPLAINT: Tongue and throat swelling HISTORY OF PRESENT ILLNESS: 37-year-old female with known severe mushroom allergy presents with an allergic reaction. She was eating lunch approximately 30 min ago, when she developed sudden onset of tongue and throat swelling. She realized that there were mushrooms in what she was eating. She used an EpiPen and now is asymptomatic. No meds given by EMS. REVIEW OF SYSTEMS: complete 10 point ROS reviewed and is negative except for the noted elements in the HPI - Personal History Tetanus Vaccine Date: July 2010 - Medical/Surgical History Hx Asthma: Yes Hx Chronic Respiratory Disease: Yes Hx Diabetes: No Hx Cardiac Disease: No Hx Renal Disease: No Hx Cirrhosis: No Hx Alcoholism: No Hx HIV/AIDS: No Hx Splenectomy or Spleen Trauma: No Other PMH: gerd/ depression, PCOS, SI, NARCOLEPSY, IRREG PERIODS, TONSILECTOMY, asthma, PNA, LUPILLO. - Social History Smoking Status: Never smoked - Physical Exam Exam: General Appearance: Alert, no distress Eyes: Pupils equal and round, no periorbital swelling ENT, Mouth: Mucous membranes moist, no oral swelling Neck: Normal inspection, no stridor Respiratory: Lungs are clear to auscultation, no wheezing Cardiovascular: Regular rate and rhythm Neurological: A&O, nonfocal, normal gait Skin: Normal inspection, no hives Extremities: No swelling Psychiatric: Mood and affect normal Constitutional: Initial Vital Signs Temperature (C) 36.8 C 01/28/18 15:25 Heart Rate 76 01/28/18 15:25 Respiratory Rate 16 01/28/18 15:25 Blood Pressure 143/78 H 01/28/18 15:25 O2 Sat (%) 94 01/28/18 15:25 O2 Delivery Mode Room Air Allergies/Adverse Reactions: erythromycin base [Erythromycin Base] Allergy (Severe, Verified 12/03/17 14:02) N/V + RASH gluten [Gluten] Allergy (Severe, Verified 12/03/17 14:02) DELAYED BODY REACTION hydrocodone bitartrate [From Vicodin] Allergy (Severe, Verified 12/03/17 14:02) Anaphylaxis latex [Latex] Allergy (Severe, Verified 12/03/17 14:02) Rash morphine Allergy (Severe, Verified 12/03/17 14:02) Anaphylaxis oxycodone HCl [From Percocet] Allergy (Severe, Verified 12/03/17 14:02) TONGUE SWELLING peanut [Peanut] Allergy (Severe, Verified 12/03/17 14:02) DELAYED BODY REACTION promethazine HCl [From Phenergan] Allergy (Severe, Verified 12/03/17 14:02) DYSTONIA wheat [Wheat] Allergy (Severe, Verified 12/03/17 14:02) DELAYED BODY REACTION acetaminophen [From Percocet] Allergy (Verified 12/03/17 14:02) MUSHROOM Allergy (Severe, Uncoded 08/20/17 08:18) Anaphylaxis Home Medications: Medication Instructions Recorded EPINEPHrine [Epipen] 0.3 mg IM ONCE #2 syr 02/12/15 Albuterol [Proventil Inhaler HFA 1 - 2 puffs IH Q4PRN PRN #1 mdi 09/11/16 (*)] Zoloft 50mg (*) 12/21/16 Albuterol [Proventil Inhaler HFA 1 - 2 puffs IH Q4PRN PRN #1 mdi 12/03/17 (*)] Control Pill 12/03/17 EPINEPHrine [Epipen 0.3 MG] 0.3 mg IM ONCE #2 syr 01/28/18 predniSONE 60 mg PO DAILY #9 tab 01/28/18 Medical Decision Making ED Course/Re-evaluation: This patient presents with anaphylaxis to mushrooms. IV normal saline, Benadryl 25 mg IV and Solu-Medrol 125 mg IV given. Will observe. 5:00 p.m.-remains asymptomatic. No oral swelling. Will discharge home. Differential Diagnosis: Differential diagnosis includes though it is not limited to laryngeal edema, bronchospasm, hypotension, angioedema. - Data Points Medications Given: Discontinued Medications Diphenhydramine HCl (Benadryl Injection) 25 mg IVP EDNOW ONE Stop: 01/28/18 15:46 Last Admin: 01/28/18 16:02 Dose: 25 mg Methylprednisolone Sodium Succinate (Solu-Medrol) 125 mg IVP EDNOW ONE Stop: 01/28/18 15:46 Last Admin: 01/28/18 16:01 Dose: 125 mg Ranitidine HCl (Zantac) 50 mg IVP EDNOW ONE Stop: 01/28/18 15:46 Last Admin: 10/13/18 16:01 Dose: 50 mg Departure - Departure Disposition: Home, Routine, Self-Care Clinical Impression: Acute anaphylaxis Condition: Good Instructions: Anaphylaxis (ED) Additional Instructions: Take Claritin in the morning and Benadryl at night while the rash persists. Take prednisone as prescribed. Return for worsening symptoms or any concerns. Referrals: Patient,NotPresent [Unknown] - As per Instructions Prescriptions: EPINEPHrine [Epipen 0.3 MG] 0.3 mg IM ONCE #2 syr predniSONE 60 mg PO DAILY #9 tab
[2018-01-28 17:29] VITALS: BP 111/71
== END 2018-01-28 17:29 | disposition home or self-care (01) ==
LOC: EDUNIT#
DX: T78.09XA Anaphylactic reaction due to other food products, initial encounter (principal)
CPT/HCPCS: 96374; J1200; J2780; J2930

== ENCOUNTER 2018-05-26 09:43 | Emergency (ER) | payer MEDICAID ==
[2018-05-26] MEDS ORDERED: IPRATROPIUM/ALBUTEROL 3 ML DEYVIAL IH ONE (10:02)
--- NOTE | 2018-05-26 10:20 | EDPHY ---
H & P Time Seen by Provider: 05/26/18 10:05 HPI/ROS: Chief complaint. Cough, shortness of breath HPI. 37-year-old female with history of asthma when sick presents with cough and tightness in her chest and sense of shortness of breath that began about 1 hr ago. As she uses her inhalers only when sick she is not use them very often. She has a albuterol inhaler and spacer but not quite sure if she used it correctly. She has no runny nose or congestion. No sore throat. No fever. Diffuse tightness across the anterior chest. No unusual leg pain or swelling. No abdominal pain. Exposure to Infectious Disease at work and family. ROS 10 systems were reviewed and negative with the exception of the elements mentioned in the history of present illness Past Medical/Surgical History: GERD, depression, PCOS, narcolepsy, asthma, pneumonia Social History: Single, nonsmoker, no alcohol Smoking Status: Never smoked Physical Exam: General Appearance: Alert well-developed female mild distress vital signs are stable Eyes: Pupils equal and round no pallor or injection. ENT, pharynx without injection. Mucous membranes moist. No stridor. Speaking in full sentences Respiratory: No retractions. No wheezes rales or rhonchi audible. Mild tachypnea Cardiovascular: Regular rate and rhythm. Gastrointestinal: Abdomen is soft and nontender, no masses, bowel sounds normal. Neurological: Awake and alert, sensory and motor exams grossly normal. Skin: Warm and dry, no rashes. Musculoskeletal: Neck is supple nontender. Extremities symmetrical, full range of motion. Psychiatric: Patient is oriented X 3, there is no agitation. Constitutional: Initial Vital Signs Temperature (C) 36.8 C 05/26/18 09:48 Heart Rate 77 05/26/18 09:48 Respiratory Rate 25 H 05/26/18 09:48 Blood Pressure 135/83 H 05/26/18 09:48 O2 Sat (%) 95 05/26/18 09:48 O2 Delivery Mode Room Air Allergies/Adverse Reactions: erythromycin base [Erythromycin Base] Allergy (Severe, Verified 05/26/18 09:50) N/V + RASH gluten [Gluten] Allergy (Severe, Verified 05/26/18 09:50) DELAYED BODY REACTION hydrocodone bitartrate [From Vicodin] Allergy (Severe, Verified 05/26/18 09:50) Anaphylaxis latex [Latex] Allergy (Severe, Verified 05/26/18 09:50) Rash morphine Allergy (Severe, Verified 05/26/18 09:50) Anaphylaxis oxycodone HCl [From Percocet] Allergy (Severe, Verified 05/26/18 09:50) TONGUE SWELLING peanut [Peanut] Allergy (Severe, Verified 05/26/18 09:50) DELAYED BODY REACTION promethazine HCl [From Phenergan] Allergy (Severe, Verified 05/26/18 09:50) DYSTONIA wheat [Wheat] Allergy (Severe, Verified 05/26/18 09:50) DELAYED BODY REACTION acetaminophen [From Percocet] Allergy (Verified 05/26/18 09:50) MUSHROOM Allergy (Severe, Uncoded 05/26/18 09:50) Anaphylaxis Home Medications: Medication Instructions Recorded EPINEPHrine [Epipen] 0.3 mg IM ONCE #2 syr 02/12/15 Albuterol [Proventil Inhaler HFA 1 - 2 puffs IH Q4PRN PRN #1 mdi 09/11/16 (*)] Zoloft 50mg (*) 12/21/16 Albuterol [Proventil Inhaler HFA 1 - 2 puffs IH Q4PRN PRN #1 mdi 12/03/17 (*)] Control Pill 12/03/17 EPINEPHrine [Epipen 0.3 MG] 0.3 mg IM ONCE #2 syr 01/28/18 predniSONE 60 mg PO DAILY #9 tab 01/28/18 predniSONE 40 mg PO DAILY #8 tablet 05/26/18 Medical Decision Making - Diagnostics Imaging Results: Imaging Impressions Chest X-Ray 05/26/18 10:27 Impression: 1. Bronchitis/airways disease. 2. No definite pneumonia. Chest x-ray reviewed by me shows no evidence for pneumonia. This appears to be more bronchitis Procedures: DuoNeb updraft Albuterol updraft ED Course/Re-evaluation: Re-evaluation 1125--patient feeling much better. No wheezes. No stridor. Speaking in full sentences. Patient and I discussed imaging study results, treatment plan including criteria for return importance of follow-up and further evaluation. She expresses understanding and agreement Differential Diagnosis: Chest x-ray shows bronchitis. No evidence for pneumonia. History of asthma. This appears to be asthma exacerbation - Data Points Medications Given: Discontinued Medications Albuterol (Proventil Neb) 3 ml IH EDNOW ONE Stop: 05/26/18 10:28 Last Admin: 05/26/18 10:33 Dose: 3 ml Albuterol (Proventil Neb) 3 ml IH EDNOW ONE Stop: 05/26/18 10:29 Last Admin: 05/26/18 10:35 Dose: Not Given Albuterol/Ipratropium (Duoneb) 3 ml IH EDNOW ONE Stop: 05/26/18 10:03 Last Admin: 05/26/18 10:05 Dose: 3 ml Departure - Departure Disposition: Home, Routine, Self-Care Clinical Impression: Exacerbation of asthma Qualifiers: Asthma severity: moderate Asthma persistence: persistent Qualified Code(s): J45.41 - Moderate persistent asthma with (acute) exacerbation Condition: Good Instructions: Asthma (ED), Acute Bronchitis (ED) Additional Instructions: Use your inhaler every 4-6 hours for the next 2 days. Drink plenty of fluids and stay hydrated. Prednisone daily for the next 4 days. Return for worsening symptoms. Recheck in 2 days if not improving Referrals: Casper Murphy PA [Primary Care Provider] - 2-3 days, if not improved Prescriptions: predniSONE 40 mg PO DAILY #8 tablet
[2018-05-26] MEDS ORDERED: ALBUTEROL 3 ML DEYVIAL IH ONE ×2 (10:27→10:28)
[2018-05-26 11:48] VITALS: BP 132/82
== END 2018-05-26 11:43 | disposition home or self-care (01) ==
DX: J45.41 Moderate persistent asthma with (acute) exacerbation (principal)
CPT/HCPCS: J7613

== ENCOUNTER 2018-07-15 09:38 | Emergency (ER) | payer MEDICAID ==
[2018-07-15] MEDS ORDERED: fentaNYL 100 MCG/2 ML INJ IVP ONE (09:53)
[2018-07-15] MEDS ORDERED: ONDANSETRON 4 MG/2 ML VIAL IVP ONE (09:53)
[2018-07-15] MEDS ORDERED: NS 1,000 ML IV ONE (09:53)
--- NOTE | 2018-07-15 10:26 | EDPHY ---
H & P Time Seen by Provider: 07/15/18 09:50 HPI/ROS: CHIEF COMPLAINT: Back pain, fevers, chills HISTORY OF PRESENT ILLNESS: 38-year-old female with history of pyelonephritis presents reporting that since past 5 days she has had low back pain associated with fevers and chills. Also notes burning with urination and difficulty voiding. Some nausea but no vomiting. Discussed the situation with her OBGYN doctor 2 days ago and was given a prescription for Macrobid. She has taken 2 doses with the minimal relief. LMP 6 weeks ago. Doubts . History of polycystic ovary disease. Denies chest pain, shortness of breath, palpitations, cold symptoms, cough. No history of kidney stones. REVIEW OF SYSTEMS: A comprehensive 10 system review of systems was reviewed and is otherwise negative aside from elements mentioned in the history of present illness and medical decision making. PAST MEDICAL HISTORY: Polycystic ovary disease, history of pyelonephritis. SOCIAL HISTORY: Nonsmoker. VITAL SIGNS Reviewed by me. Afebrile here. GENERAL: Well-developed, well-nourished, appears uncomfortable. Moving slowly while walking to the room, indicating pain across her lower back. HEENT: Atraumatic. Eyes: No icterus, no injection. Mouth: moist mucous membranes. No erythema or lesions. Neck: supple with no adenopathy. LUNGS: Clear to auscultation bilaterally, no wheezes, rhonchi or rales. CARDIAC: Regular rate and rhythm, no rubs, murmurs or gallops. ABDOMEN: Soft, moderately obese, nontender, nondistended, bowel sounds normal. BACK: Bilateral CVA tenderness. EXTREMITIES: No trauma. No edema. Range of motion is normal throughout. NEURO: Alert and oriented, grossly nonfocal. SKIN: Warm and dry, no rash. PSYCHIATRIC: Normal mentation, no agitation. Smoking Status: Never smoked Constitutional: Initial Vital Signs Temperature (C) 37.0 C 07/15/18 09:43 Heart Rate 87 07/15/18 09:43 Respiratory Rate 18 07/15/18 09:43 Blood Pressure 144/90 H 07/15/18 09:43 O2 Sat (%) 95 07/15/18 09:43 O2 Delivery Mode Room Air O2 (L/minute) 2 Allergies/Adverse Reactions: erythromycin base [Erythromycin Base] Allergy (Severe, Verified 05/26/18 09:50) N/V + RASH gluten [Gluten] Allergy (Severe, Verified 05/26/18 09:50) DELAYED BODY REACTION hydrocodone bitartrate [From Vicodin] Allergy (Severe, Verified 05/26/18 09:50) Anaphylaxis latex [Latex] Allergy (Severe, Verified 05/26/18 09:50) Rash morphine Allergy (Severe, Verified 05/26/18 09:50) Anaphylaxis oxycodone HCl [From Percocet] Allergy (Severe, Verified 05/26/18 09:50) TONGUE SWELLING peanut [Peanut] Allergy (Severe, Verified 05/26/18 09:50) DELAYED BODY REACTION promethazine HCl [From Phenergan] Allergy (Severe, Verified 05/26/18 09:50) DYSTONIA wheat [Wheat] Allergy (Severe, Verified 05/26/18 09:50) DELAYED BODY REACTION acetaminophen [From Percocet] Allergy (Verified 05/26/18 09:50) MUSHROOM Allergy (Severe, Uncoded 05/26/18 09:50) Anaphylaxis Home Medications: Medication Instructions Recorded Cephalexin [Keflex (RX)] 500 mg PO TID 7 Days cap 07/15/18 HYDROmorphone HCL [Dilaudid 2 mg 2 mg PO Q3 PRN #8 tab 07/15/18 (*)] Macrobid 07/15/18 Ondansetron Odt [Zofran Odt 4 mg 4 mg PO Q6 PRN #8 tab 07/15/18 (RX)] Medical Decision Making - Diagnostics Imaging Results: Imaging Impressions Abdomen CT 07/15/18 11:17 Impression: 1. Left nephrolithiasis with no obstructive uropathy. A source for bilateral flank pain is not identified. 2. See above report for additional findings. Results called and discussed with Chante Harris MD on 07/15/2018 at 12:54. Imaging: Discussed imaging studies w/ mogul operator Radiologist ED Course/Re-evaluation: IV placed. Patient received fentanyl and Zofran. Urinalysis ordered as well as CBC, chemistries, lactic acid. Laboratory evaluation largely unremarkable. Patient has a normal lactic acid, normal white blood cell count, largely unremarkable chemistries. Urinalysis has only 3-5 white cells per high-power field. Given the patient's significant discomfort without clearly infected looking urine, CT scan of the abdomen pelvis was ordered. This was negative for any retroperitoneal findings, or ovarian pathology. Discussed the situation with the patient. She had initially been treated with fentanyl which gave her some relief but the pain returned. She did received Toradol as well as Dilaudid. She has multiple allergies to narcotics. Plan was made to treat the patient with presumed pyelonephritis. She received ceftriaxone 1 g and was discharged on Keflex 500 mg. She was given Zofran to use for nausea. Given her history of anaphylactic reactions to oxycodone and hydrocodone, I am reluctant to give the patient tramadol. She did do well in the emergency department on Dilaudid and a short course of oral Dilaudid was written for the patient. She understands that pyelonephritis this is a presumptive diagnosis. If she is not improving with the above treatment she should seek care urgently. If she is worsening especially if she continues with fever, has vomiting, blood in her urine, or other concerns she should return to the emergency department. Differential Diagnosis: Differential diagnosis of the patient's flank pain was considered including but not limited to musculoskeletal causes, kidney stone, pyelonephritis, shingles, and intra-abdominal causes such as diverticulitis and appendicitis. - Data Points Laboratory Results: Laboratory Results 07/15/18 10:20 07/15/18 10:20 07/15/18 07/15/18 07/15/18 10:20 10:20 10:20 WBC RBC Hgb Hct MCV MCH MCHC RDW Plt Count MPV Neut % (Auto) Lymph % (Auto) [place] % (Auto) Eos % (Auto) Baso % (Auto) Nucleat RBC Rel Count Absolute Neuts (auto) Absolute Lymphs (auto) Absolute Monos (auto) Absolute Eos (auto) Absolute Basos (auto) Absolute Nucleated RBC Immature Gran % Immature Gran # VBG Lactic Acid 1.5 mmol/L mmol/L (0.7-2.1) Sodium Potassium Chloride Carbon Dioxide Anion Gap BUN Creatinine Estimated GFR Glucose Calcium Beta HCG, Qual NEGATIVE Urine Color YELLOW Urine Appearance HAZY Urine pH 5.0 (5.0-7.5) Ur Specific [place] 1.023 (1.002-1.030) Urine Protein NEGATIVE (NEGATIVE) Urine Ketones NEGATIVE (NEGATIVE) Urine Blood NEGATIVE (NEGATIVE) Urine Nitrate NEGATIVE (NEGATIVE) Urine Bilirubin NEGATIVE (NEGATIVE) Urine Urobilinogen NEGATIVE EU EU (0.2-1.0) Ur Leukocyte Esterase TRACE H (NEGATIVE) Urine RBC 1-3 /hpf /hpf (0-3) Urine WBC 3-5 /hpf H /hpf (0-3) Ur Epithelial Cells TRACE /lpf /lpf (NONE-1+) Urine Mucus TRACE /lpf /lpf (NONE-1+) Urine Glucose NEGATIVE (NEGATIVE) 07/15/18 07/15/18 10:20 10:20 WBC 8.40 10^3/uL 10^3/uL (3.80-9.50) RBC 5.20 10^6/uL 10^6/uL (4.18-5.33) Hgb 15.3 g/dL g/dL (12.6-16.3) Hct 46.7 % % (38.0-47.0) MCV 89.8 fL fL (81.5-99.8) MCH 29.4 pg pg (27.9-34.1) MCHC 32.8 g/dL g/dL (32.4-36.7) RDW 13.4 % % (11.5-15.2) Plt Count 277 10^3/uL 10^3/uL (150-400) MPV 9.5 fL fL (8.7-11.7) Neut % (Auto) 61.9 % % (39.3-74.2) Lymph % (Auto) 28.7 % % (15.0-45.0) [place] % (Auto) 5.0 % % (4.5-13.0) Eos % (Auto) 3.1 % % (0.6-7.6) Baso % (Auto) 1.1 % % (0.3-1.7) Nucleat RBC Rel Count 0.0 % % (0.0-0.2) Absolute Neuts (auto) 5.20 10^3/uL 10^3/uL (1.70-6.50) Absolute Lymphs (auto) 2.41 10^3/uL 10^3/uL (1.00-3.00) Absolute Monos (auto) 0.42 10^3/uL 10^3/uL (0.30-0.80) Absolute Eos (auto) 0.26 10^3/uL 10^3/uL (0.03-0.40) Absolute Basos (auto) 0.09 10^3/uL 10^3/uL (0.02-0.10) Absolute Nucleated RBC 0.00 10^3/uL 10^3/uL (0-0.01) Immature Gran % 0.2 % % (0.0-1.1) Immature Gran # 0.02 10^3/uL 10^3/uL (0.00-0.10) VBG Lactic Acid Sodium 137 mEq/L mEq/L (135-145) Potassium 4.0 mEq/L mEq/L (3.5-5.2) Chloride 104 mEq/L mEq/L (97-110) Carbon Dioxide 25 mEq/l mEq/l (22-31) Anion Gap 8 mEq/L mEq/L (6-14) BUN 11 mg/dL mg/dL (7-23) Creatinine 0.6 mg/dL mg/dL (0.6-1.0) Estimated GFR > 60 Glucose 102 mg/dL H mg/dL (70-100) Calcium 9.2 mg/dL mg/dL (8.5-10.4) Beta HCG, Qual Urine Color Urine Appearance Urine pH Ur Specific [place] Urine Protein Urine Ketones Urine Blood Urine Nitrate Urine Bilirubin Urine Urobilinogen Ur Leukocyte Esterase Urine RBC Urine WBC Ur Epithelial Cells Urine Mucus Urine Glucose Medications Given: Discontinued Medications Fentanyl (Sublimaze) 100 mcg IVP EDNOW ONE Stop: 07/15/18 09:54 Last Admin: 07/15/18 10:13 Dose: 100 mcg Hydromorphone HCl (Dilaudid) 1 mg IVP EDNOW ONE Stop: 07/15/18 11:33 Last Admin: 07/15/18 11:43 Dose: 1 mg Sodium Chloride (Ns) 1,000 mls @ 0 mls/hr IV ONCE ONE; Wide Open PRN Reason: Protocol Stop: 07/15/18 09:54 Last Admin: 07/15/18 10:13 Dose: 1,000 mls Ceftriaxone Sodium/Dextrose (Rocephin 1 Gm (Premix)) 50 mls @ 100 mls/hr IV EDNOW ONE PRN Reason: Protocol Stop: 07/15/18 13:36 Last Admin: 07/15/18 13:14 Dose: 50 mls Ketorolac Tromethamine (Toradol) 30 mg IVP EDNOW ONE Stop: 07/15/18 10:50 Last Admin: 07/15/18 10:57 Dose: 30 mg Ondansetron HCl (Zofran) 4 mg IVP EDNOW ONE Stop: 07/15/18 09:54 Last Admin: 07/15/18 10:13 Dose: 4 mg Departure - Departure Disposition: Home, Routine, Self-Care Clinical Impression: Bilateral flank pain, Rule out pyelonephritis Condition: Good Instructions: Kidney Infection (ED), Flank Pain (ED) Additional Instructions: As we discussed, you're urine does not show a significant infection, however, you have taken 2 doses antibiotics which may be altering the results. I believe you may have pyelonephritis. Please take antibiotic Keflex as directed. 500 mg by mouth 3 times a day for the next 7 days. You been given a prescription of Zofran to use as needed for ongoing nausea. Please use Tylenol and ibuprofen as needed for pain. You have also been given a prescription of oral Dilaudid to try for more severe pain. I encourage you to follow up with primary care physician or with the urologist as soon as possible. Results of the urine test will be available in 24-36 hr. Referrals: Casper Murphy PA [Primary Care Provider] - As per Instructions Stand Alone Forms: Work Excuse Prescriptions: Cephalexin [Keflex (RX)] 500 mg PO TID 7 Days cap HYDROmorphone HCL [Dilaudid 2 mg (*)] 2 mg PO Q3 PRN #8 tab PRN Reason: pain Ondansetron Odt [Zofran Odt 4 mg (RX)] 4 mg PO Q6 PRN #8 tab PRN Reason: Nausea
[2018-07-15 10:34] LABS: PLATELET COUNT 277 10^3/uL (150-400)
[2018-07-15] MEDS ORDERED: KETOROLAC 30 MG/1 ML SDV IVP ONE (10:49)
[2018-07-15] MEDS ORDERED: IOPAMIDOL (ISOVUE-300) 100 ML BTL ONE (11:30)
[2018-07-15] MEDS ORDERED: HYDROmorphONE/DILAUDID 2 MG/ML INJ IVP ONE (11:32)
[2018-07-15 13:34] VITALS: BP 115/67
== END 2018-07-15 13:34 | disposition home or self-care (01) ==
DX: N20.0 Calculus of kidney (principal); E86.9 Volume depletion, unspecified
CPT/HCPCS: 96365; J0696; J1170; J1885; J2405; J3010; Q9967

== ENCOUNTER 2018-07-21 14:00 | Emergency (ER) | payer MEDICAID ==
--- NOTE | 2018-07-21 14:40 | EDPHY ---
H & P Stated Complaint: Bilat flank pain for 1 week. Recent UTI. Time Seen by Provider: 07/21/18 14:25 HPI/ROS: CHIEF COMPLAINT: "My kidneys are killing me" HISTORY OF PRESENT ILLNESS: 38-year-old female via private vehicle complaining of bilateral flank pain present for several days. She was seen in the emergency department 7 days ago for same complaint, was given prescription for Keflex, Dilaudid and discharged. At that visit she also had CT imaging showing no definitive source for flank pain. Patient states that she has not been taking her Dilaudid she does not like the somnolence that accompanies it. She is complaining of pain. She has been incomplete taking her Keflex as prescribed. Denies: Fever, chills, nausea, vomiting, incontinence, retention, saddle anesthesia, lower extremity radiculopathy, recent trauma. REVIEW OF SYSTEMS: 10 systems reviewed and negative with the exception of the elements mentioned in the history of present illness PAST MEDICAL & SURGICAL HISTORY: polycystic ovarian disease. SOCIAL HISTORY:nonsmoker. PHYSICAL EXAM (Prior to examination, patient consented to physical exam, hands were washed and my usual and customary physical exam procedures followed) 1) GENERAL: Well-developed, well-nourished, alert and oriented. Appears uncomfortable. 2) HEAD: Normocephalic, atraumatic 3) HEENT: Pupils equal, round, reactive to light bilaterally. Sclera anicteric. Nasopharynx, oropharynx, clear, no lesions. MoistDry mucous membranes. Ears bilaterally with normal tympanic membranes. 4) NECK: Full range of motion, no meningeal signs. 5) LUNGS: Clear auscultation bilaterally, no wheezes, no rhonchi, no retractions. 6) HEART: Regular rate and rhythm, no murmur, no heave, no gallop. 7) ABDOMEN: No guarding, no rebound, no focal tenderness, negative McBurney's, negative Dang's, negative Rovsing's, negative peritoneal sign, 8) MUSCULOSKELETAL: Moving all extremities, no focal areas of tenderness, no obvious trauma. No peripheral edema or discoloration. 9) BACK: Positive bilateral CVA tenderness, tender to palpation midline lumbar spine. No visible trauma. No lesions. Patella and Achilles reflexes intact equal bilaterally strength 5/5. No footdrop. 10) SKIN: No rash, no petechiae. 11) Psychiatric: Patient is oriented X 3, there is no agitation. DIFFERENTIAL DIAGNOSIS: In no particular order, including but not limited to, fracture, sprain/strain, cauda equina, spinal infectious etiology. - Personal History Current Tetanus Diphtheria and Acellular Pertussis (TDAP): Yes Tetanus Vaccine Date: July 2010 - Medical/Surgical History Hx Asthma: Yes Hx Chronic Respiratory Disease: Yes Hx Diabetes: No Hx Cardiac Disease: No Hx Renal Disease: No Hx Cirrhosis: No Hx Alcoholism: No Hx HIV/AIDS: No Hx Splenectomy or Spleen Trauma: No Other PMH: gerd/ depression, PCOS, SI, NARCOLEPSY, TONSILECTOMY, asthma - Social History Smoking Status: Never smoked Constitutional: Initial Vital Signs Temperature (C) 36.5 C 07/21/18 14:02 Heart Rate 76 07/21/18 14:02 Respiratory Rate 20 07/21/18 14:02 Blood Pressure 149/103 H 07/21/18 14:02 O2 Sat (%) 96 07/21/18 14:02 O2 Delivery Mode Room Air Allergies/Adverse Reactions: erythromycin base [Erythromycin Base] Allergy (Severe, Verified 05/26/18 09:50) N/V + RASH gluten [Gluten] Allergy (Severe, Verified 05/26/18 09:50) DELAYED BODY REACTION hydrocodone bitartrate [From Vicodin] Allergy (Severe, Verified 05/26/18 09:50) Anaphylaxis latex [Latex] Allergy (Severe, Verified 05/26/18 09:50) Rash morphine Allergy (Severe, Verified 05/26/18 09:50) Anaphylaxis oxycodone HCl [From Percocet] Allergy (Severe, Verified 05/26/18 09:50) TONGUE SWELLING peanut [Peanut] Allergy (Severe, Verified 05/26/18 09:50) DELAYED BODY REACTION promethazine HCl [From Phenergan] Allergy (Severe, Verified 05/26/18 09:50) DYSTONIA wheat [Wheat] Allergy (Severe, Verified 05/26/18 09:50) DELAYED BODY REACTION acetaminophen [From Percocet] Allergy (Verified 05/26/18 09:50) MUSHROOM Allergy (Severe, Uncoded 05/26/18 09:50) Anaphylaxis Home Medications: Medication Instructions Recorded Cephalexin [Keflex (RX)] 500 mg PO TID 7 Days cap 07/15/18 HYDROmorphone HCL [Dilaudid 2 mg 2 mg PO Q3 PRN #8 tab 07/15/18 (*)] Macrobid 07/15/18 Ondansetron Odt [Zofran Odt 4 mg 4 mg PO Q6 PRN #8 tab 07/15/18 (RX)] Cyclobenzaprine [Flexeril 10 MG 10 mg PO TID #10 tab 07/21/18 (RX)] Medical Decision Making - Diagnostics Imaging Results: Imaging Impressions Abdomen/Pelvis Ultrasound 07/21/18 14:43 Impression: There is no evidence of obstructive uropathy in this patient with previously-demonstrated left nephrolithiasis. Findings were discussed with Rashida Pa PA-C at 16:02, on 07/21/2018. Images reviewed myself ED Course/Re-evaluation: 2:30 p.m.: Patient is hyperventilating, crying, appears quite uncomfortable. I reviewed the patient's imaging results from her visit a few days ago as well as her urinalysis which is negative for growth. 3:33 p.m.: Re-evaluation after 2.5 mg of IV Haldol. Patient is sleeping. Awaiting ultrasound results. 3:55 p.m.: Patient observed ambulating stable steady gait, no complaints of pain, appears well. She has provided a urine sample at this time. Awaiting urinalysis results. 4:20 p.m.: Re-evaluation. She is resting comfortably. Discussed remainder of her laboratory studies including urinalysis which is negative. I do not think that antibiotics are indicated at this time. I do not think that hospitalization indicated at this time. She feels comfortable being discharged. Doubt cauda equina. Doubt spinal infectious etiology. Care of patient under supervision of secondary supervising physician Dr Khalil . - Data Points Laboratory Results: Laboratory Results 07/21/18 14:58 07/21/18 14:58 07/21/18 07/21/18 07/21/18 15:25 14:58 14:58 WBC RBC Hgb Hct MCV MCH MCHC RDW Plt Count MPV Neut % (Auto) Lymph % (Auto) [place] % (Auto) Eos % (Auto) Baso % (Auto) Nucleat RBC Rel Count Absolute Neuts (auto) Absolute Lymphs (auto) Absolute Monos (auto) Absolute Eos (auto) Absolute Basos (auto) Absolute Nucleated RBC Immature Gran % Immature Gran # Sodium 138 mEq/L mEq/L (135-145) Potassium 4.0 mEq/L mEq/L (3.5-5.2) Chloride 104 mEq/L mEq/L (97-110) Carbon Dioxide 25 mEq/l mEq/l (22-31) Anion Gap 9 mEq/L mEq/L (6-14) BUN 9 mg/dL mg/dL (7-23) Creatinine 0.5 mg/dL L mg/dL (0.6-1.0) Estimated GFR > 60 Glucose 81 mg/dL mg/dL (70-100) Calcium 9.1 mg/dL mg/dL (8.5-10.4) Total Bilirubin 0.5 mg/dL mg/dL (0.1-1.4) Conjugated Bilirubin 0.2 mg/dL mg/dL (0.0-0.5) Unconjugated Bilirubin 0.3 mg/dL mg/dL (0.0-1.1) AST 44 IU/L IU/L (14-46) ALT 56 IU/L H IU/L (9-52) Alkaline Phosphatase 97 IU/L IU/L (38-126) Total Protein 6.7 g/dL g/dL (6.3-8.2) Albumin 3.9 g/dL g/dL (3.5-5.0) Lipase 85 IU/L IU/L (23-300) Beta HCG, Qual NEGATIVE Urine Color YELLOW Urine Appearance CLEAR Urine pH 6.0 (5.0-7.5) Ur Specific [place] [address] 1.008 (1.002-1.030) Urine Protein NEGATIVE (NEGATIVE) Urine Ketones NEGATIVE (NEGATIVE) Urine Blood NEGATIVE (NEGATIVE) Urine Nitrate NEGATIVE (NEGATIVE) Urine Bilirubin NEGATIVE (NEGATIVE) Urine Urobilinogen NEGATIVE EU EU (0.2-1.0) Ur Leukocyte Esterase NEGATIVE (NEGATIVE) Urine RBC 1-3 /hpf /hpf (0-3) Urine WBC 1-3 /hpf /hpf (0-3) Ur Epithelial Cells TRACE /lpf /lpf (NONE-1+) Urine Mucus TRACE /lpf /lpf (NONE-1+) Urine Glucose NEGATIVE (NEGATIVE) 07/21/18 14:58 WBC 8.32 10^3/uL 10^3/uL (3.80-9.50) RBC 4.96 10^6/uL 10^6/uL (4.18-5.33) Hgb 14.5 g/dL g/dL (12.6-16.3) Hct 43.0 % % (38.0-47.0) MCV 86.7 fL fL (81.5-99.8) MCH 29.2 pg pg (27.9-34.1) MCHC 33.7 g/dL g/dL (32.4-36.7) RDW 13.7 % % (11.5-15.2) Plt Count 260 10^3/uL 10^3/uL (150-400) MPV 9.5 fL fL (8.7-11.7) Neut % (Auto) 58.8 % % (39.3-74.2) Lymph % (Auto) 31.4 % % (15.0-45.0) [place] % (Auto) 5.6 % % (4.5-13.0) Eos % (Auto) 2.6 % % (0.6-7.6) Baso % (Auto) 1.2 % % (0.3-1.7) Nucleat RBC Rel Count 0.0 % % (0.0-0.2) Absolute Neuts (auto) 4.89 10^3/uL 10^3/uL (1.70-6.50) Absolute Lymphs (auto) 2.61 10^3/uL 10^3/uL (1.00-3.00) Absolute Monos (auto) 0.47 10^3/uL 10^3/uL (0.30-0.80) Absolute Eos (auto) 0.22 10^3/uL 10^3/uL (0.03-0.40) Absolute Basos (auto) 0.10 10^3/uL 10^3/uL (0.02-0.10) Absolute Nucleated RBC 0.00 10^3/uL 10^3/uL (0-0.01) Immature Gran % 0.4 % % (0.0-1.1) Immature Gran # 0.03 10^3/uL 10^3/uL (0.00-0.10) Sodium Potassium Chloride Carbon Dioxide Anion Gap BUN Creatinine Estimated GFR Glucose Calcium Total Bilirubin Conjugated Bilirubin Unconjugated Bilirubin AST ALT Alkaline Phosphatase Total Protein Albumin Lipase Beta HCG, Qual Urine Color Urine Appearance Urine pH Ur Specific [place] Urine Protein Urine Ketones Urine Blood Urine Nitrate Urine Bilirubin Urine Urobilinogen Ur Leukocyte Esterase Urine RBC Urine WBC Ur Epithelial Cells Urine Mucus Urine Glucose Medications Given: Discontinued Medications Haloperidol Lactate (Haldol Injection) 2.5 mg IVP EDNOW ONE Stop: 07/21/18 14:43 Last Admin: 07/21/18 15:01 Dose: 2.5 mg Departure - Departure Disposition: Home, Routine, Self-Care Clinical Impression: Back pain Qualifiers: Back pain location: low back pain Chronicity: acute Back pain laterality: bilateral Sciatica presence: without sciatica Qualified Code(s): M54.5 - Low back pain Condition: Good Instructions: Back Pain (ED) Additional Instructions: Seek medical attention if you develop new or worsening pain, if you develop bladder or bowel dysfunction, numbness around your perineum, foot drop, or any other symptoms that concern you. Referrals: Casper Murphy PA [Primary Care Provider] - As per Instructions Prescriptions: Cyclobenzaprine [Flexeril 10 MG (RX)] 10 mg PO TID #10 tab
[2018-07-21] MEDS ORDERED: HALOPERIDOL LACT 5 MG/ML INJ IVP ONE (14:42)
[2018-07-21 15:14] LABS: PLATELET COUNT 260 10^3/uL (150-400)
[2018-07-21 16:42] VITALS: BP 139/90
== END 2018-07-21 16:40 | disposition home or self-care (01) ==
DX: M54.5 Low back pain (principal); E28.2 Polycystic ovarian syndrome; K21.9 Gastro-esophageal reflux disease without esophagitis; F32.9 Major depressive disorder, single episode, unspecified
CPT/HCPCS: 96374; J1630

== ENCOUNTER 2018-09-01 10:51 | Emergency (ER) | payer OTHER, MEDICAID ==
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
[2018-09-01] MEDS ORDERED: IOPAMIDOL (ISOVUE-300) 100 ML BTL ONE (11:52)
[2018-09-01 13:06] VITALS: BP 106/71
== END 2018-09-01 13:24 | disposition home or self-care (01) ==
LOC: EDUNIT#
DX: S46.911A Strain of unspecified muscle, fascia and tendon at shoulder and upper arm level, right arm, initial encounter (principal); S66.912A Strain of unspecified muscle, fascia and tendon at wrist and hand level, left hand, initial encounter; S93.601A Unspecified sprain of right foot, initial encounter; M54.2 Cervicalgia; N20.0 Calculus of kidney; K76.0 Fatty (change of) liver, not elsewhere classified; V49.49XA Driver injured in collision with other motor vehicles in traffic accident, initial encounter; Y92.410 Unspecified street and highway as the place of occurrence of the external cause
CPT/HCPCS: 82435-PO; 82565-PO; 82947-PO; 84132-PO; 84295-PO; 84520-PO; 85014-ER; L3807; Q9967

== ENCOUNTER → 2018-10-05 | Outpatient (CLI) | payer MEDICAID, OTHER | LOC: FIMAGING 07:22 ==